=== PATIENT | male | born 1995 ===

== ENCOUNTER 2024-09-17 19:48 | Emergency (ER) | payer OTHER ==
[~2024-09-17] VITALS: Ht 170.2 cm; Wt 62.7 kg
[2024-09-17 19:56] VITALS: BP 112/72; PULSE 105; RESP 16; TEMP 98.5; O2SAT 99
== END 2024-09-17 22:28 | disposition left against medical advice (07) ==
LOC: EMS 19:48
DX: R07.81 Pleurodynia (principal); Z53.21 Procedure and treatment not carried out due to patient leaving prior to being seen by health care provider
CPT/HCPCS: 71101